=== PATIENT | female | born 1930 | race African-American/Black ===

== ENCOUNTER → 2016-12-11 | Outpatient (CLI) | payer BC | LOC: RAD 13:04 | PROVIDERS: ATTEND Internal Medicine | DX: H05.20 Unspecified exophthalmos (principal) | CPT/HCPCS: 70481; 82565 ==

== ENCOUNTER 2017-10-29 18:17 | Emergency (ER) | payer BC, MEDICARE ==
[2017-10-29] MEDS ORDERED: ASPIRIN 81 MG TABLET, CHEWABLE PO ONE (19:17)
[2017-10-29] MEDS ORDERED: ALPRAZOLAM 0.5 MG TABLET PO ONE (19:18)
--- NOTE | 2017-10-29 19:20 | ER Document Report ---
ED Blood Pressure Problem - General Chief Complaint: High Blood Pressure Stated Complaint: BLOOD PRESSURE PROBLEM Time Seen by Provider: 10/29/17 18:53 Notes: 86 years old elderly pleasant female, checked her blood pressure at home it was high around 187 got panicked and brought to the doctor's office that the pressure was 210 systole, therefore you she was referred to the ED. They also had an electrocardiogram done in the doctor's office. Which showed a heart rate of 98. She denies any headache dizziness blurring of vision focal weakness numbness tingling sensation. Denies any chest pain shortness of breath wheezing. Denies any palpitation or diaphoresis. She has chronic cough otherwise no fever chills. TRAVEL OUTSIDE OF THE [place] IN LAST 30 DAYS: No - Related Data Allergies/Adverse Reactions: Penicillins Allergy (Verified 10/29/17 18:19) Home Medications: Current Home Medications Doxycycline Hyclate 100 mg PO BID 10/29/17 [History] Exenatide [Byetta] 1 dose SUBCUT ASDIR PRN 10/29/17 [History] Glipizide [Glipizide Xl] 1 tab PO DAILY 10/29/17 [History] Hydrochlorothiazide 12.5 mg PO DAILY 10/29/17 [History] Levothyroxine Sodium [Synthroid 0.025 mg Tablet] 1 tab PO DAILY 10/29/17 [ History] Losartan/Hydrochlorothiazide [Losartan-Hctz 100-25 mg Tab] 1 each PO DAILY 10/29 [History] Metformin HCl [Metformin HCl ER] 500 mg PO BID 10/29/17 [History] Montelukast Sodium 10 mg PO DAILY 10/29/17 [History] Pravastatin Sodium [Pravachol] 40 mg PO QHS 10/29/17 [History] Past Medical History - Social History Smoking Status: Never Smoker Chew tobacco use (# tins/day): No Frequency of alcohol use: Rare Drug Abuse: None Family History: Reviewed & Not Pertinent Patient has suicidal ideation: No Patient has homicidal ideation: No - Past Medical History Cardiac Medical History: Reports: Hx Hypercholesterolemia, Hx Hypertension Endocrine Medical History: Reports: Hx Diabetes Mellitus Type 2 Renal/ Medical History: Denies: Hx Peritoneal Dialysis Review of Systems - Review of Systems Notes: REVIEW OF SYSTEMS: CONSTITUTIONAL : Denies fever, chills, or sweats. Denies recent illness. EENT: Denies eye, ear, throat, or mouth pain or symptoms. Denies nasal or sinus congestion or discharge. Denies throat, tongue, or mouth swelling or difficulty swallowing. CARDIOVASCULAR: Denies chest pain. Denies palpitations or racing or irregular heart beat. Denies ankle edema. RESPIRATORY: Denies cough, cold, or chest congestion. Denies shortness of breath, difficulty breathing, or wheezing. GASTROINTESTINAL: Denies abdominal pain or distention. Denies nausea, vomiting , or diarrhea. Denies blood in vomitus, stools, or per rectum. Denies black, tarry stools. Denies constipation. GENITOURINARY: Denies difficulty urinating, painful urination, burning, frequency, blood in urine, or discharge. FEMALE GENITOURINARY: Denies vaginal bleeding, heavy or abnormal periods, irregular periods. Denies vaginal discharge or odor. MUSCULOSKELETAL: Denies back or neck pain or stiffness. Denies joint pain or swelling. SKIN: Denies rash, lesions or sores. HEMATOLOGIC : Denies easy bruising or bleeding. LYMPHATIC: Denies swollen, enlarged glands. NEUROLOGICAL: Denies confusion or altered mental status. Denies passing out or loss of consciousness. Denies dizziness or lightheadedness. Denies headache. Denies weakness or paralysis or loss of use of either side. Denies problems with gait or speech. Denies sensory loss, numbness, or tingling. Denies seizures. PSYCHIATRIC: Denies anxiety or stress. Denies depression, suicidal ideation, or homicidal ideation. ALL OTHER SYSTEMS REVIEWED AND NEGATIVE. PHYSICAL EXAMINATION: GENERAL: Well-appearing, well-nourished and in no acute distress. HEAD: Atraumatic, normocephalic. EYES: Pupils equal round and reactive to light, extraocular movements intact, conjunctiva are normal. ENT: Nares patent, oropharynx clear without exudates. Moist mucous membranes. NECK: Normal range of motion, supple without lymphadenopathy LUNGS: Breath sounds clear to auscultation bilaterally and equal. No wheezes rales or rhonchi. HEART: Regular rate and rhythm without murmurs ABDOMEN: Soft, nontender, nondistended abdomen. No guarding, no rebound. No masses appreciated. Female : deferred Musculoskeletal: Normal range of motion, no pitting or edema. No cyanosis. NEUROLOGICAL: Cranial nerves grossly intact. Normal speech, normal gait. Normal sensory, motor exams PSYCH: Normal mood, normal affect. SKIN: Warm, Dry, normal turgor, no rashes or lesions noted. Dictation was performed using [employer] voice recognition software Physical Exam - Vital signs Vitals: Temp Pulse Resp Pulse Ox 97.9 F 111 H 20 97 10/29/17 18:26 10/29/17 18:26 10/29/17 18:26 10/29/17 18:26 Course - Re-evaluation Re-evalutation: 10/29/17 23:55 BP has come down to 150/83,Feeling comfortable. Lab and X 10/30/17 00:00 Patient feels much comfortable, she has a questionable small infiltrate in the right upper lobe therefore started with antibiotic. - Vital Signs Vital signs: Temp Pulse Resp BP Pulse Ox 97.9 F 111 H 26 H 150/76 H 99 10/29/17 18:26 10/29/17 18:26 10/29/17 23:01 10/29/17 23:01 10/29/17 23:01 - Laboratory Result Diagrams: 10/29/17 19:35 10/29/17 20:34 Laboratory results interpreted by me: 10/29/17 10/29/17 10/29/17 19:35 20:34 20:34 WBC 14.5 H Hgb 11.9 L Hct 34.8 L RDW 16.8 H Seg Neutrophils % 87.8 H Lymphocytes % 8.8 L Monocytes % 2.9 L Absolute Neutrophils 12.7 H Chloride 97 L BUN 31 H Glucose 157 H Alkaline Phosphatase 136 H Creatine Kinase 543 H CK-MB (CK-2) 5.29 H - Diagnostic Test Radiology results interpreted by me: 10/30/17 00:01 Radiology report reviewed - EKG Interpretation by Me EKG shows normal: Sinus rhythm - Sinus rhythm at the rate of 98 bpm, normal axis no acute ST elevation ST depression T-wave inversion noted. Left ventricular hypertrophy by voltage criteria. Discharge - Discharge Clinical Impression: Bronchitis, Anxiety Hypertension Qualifiers: Hypertension type: essential hypertension Qualified Code(s): I10 - Essential ( primary) hypertension Disposition: HOME, SELF-CARE Instructions: High Blood Pressure ([facility]) Prescriptions: Alprazolam [Xanax 0.25 mg Tablet] 0.25 mg PO Q6HP PRN #10 tablet PRN Reason: Azithromycin [Zithromax 250 mg Tablet] 250 mg PO ASDIR PRN #6 tablet PRN Reason:
--- NOTE | 2017-10-29 19:39 | RADIOLOGY REPORT (SQ) ---
EXAM DESCRIPTION: CHEST SINGLE VIEW COMPLETED DATE/TIME: 10/29/2017 7:31 pm REASON FOR STUDY: Cough COMPARISON: None. EXAM PARAMETERS: NUMBER OF VIEWS: One view. TECHNIQUE: Single frontal radiographic view of the chest acquired. RADIATION DOSE: NA LIMITATIONS: None. FINDINGS: LUNGS AND PLEURA: Density in the right apex. Mass versus chronic scarring. Left basilar atelectasis. MEDIASTINUM AND HILAR STRUCTURES: No masses. Contour normal. HEART AND VASCULAR STRUCTURES: Heart normal in size. Normal vasculature. BONES: No acute findings. HARDWARE: None in the chest. OTHER: No other significant finding. IMPRESSION: Mass versus scar in the right apex. Basilar atelectasis on the left. TECHNICAL DOCUMENTATION: JOB ID: [id number] [employer]- All Rights Reserved
[2017-10-29 19:51] LABS: ABSOLUTE BASOPHILS # (AUTO) 0.1 10^3/uL (0.0-0.2); ABSOLUTE LYMPHOCYTES (AUTO) 1.3 10^3/uL (0.5-4.7); ABSOLUTE MONOCYTES (AUTO) 0.4 10^3/uL (0.1-1.4); ABSOLUTE NEUT (AUTO) 12.7 10^3/uL (1.7-8.2); BASOPHILS % (AUTO) 0.4 % (0-2); EOSINOPHILS % (AUTO) 0.1 % (0-6); HEMATOCRIT 34.8 % (36.0-47.0); HEMOGLOBIN 11.9 g/dL (12.0-15.5); HGB HCT DIFFERENCE 0.9; LYMPHOCYTES % (AUTO) 8.8 % (13-45); MEAN CORPUSCULAR HGB CONC 34.2 g/dL (32.0-36.0); MEAN CORPUSCULAR VOLUME 82 fl (80-97); MONOCYTES % (AUTO) 2.9 % (3-13); RED BLOOD COUNT 4.25 10^6/uL (3.72-5.28); RED CELL DISTRIBUTION WIDTH 16.8 % (11.5-14.0); SEGMENTED NEUTROPHILS % (AUTO) 87.8 % (42-78); WHITE BLOOD COUNT 14.5 10^3/uL (4.0-10.5)
[2017-10-29 21:12] LABS: ALANINE AMINOTRANSFERASE 29 U/L (9-52); ALBUMIN 4.5 g/dL (3.5-5.0); ALKALINE PHOSPHATASE 136 U/L (38-126); ANION GAP 17 (5-19); ASPARTATE AMINO TRANSFERASE 35 U/L (14-36); BILIRUBIN,DIRECT 0.4 mg/dL (0.0-0.4); BILIRUBIN,TOTAL 0.9 mg/dL (0.2-1.3); BLOOD UREA NITROGEN 31 mg/dL (7-20); CARBON DIOXIDE 24 mmol/L (22-30); CHLORIDE 97 mmol/L (98-107); CREATINE KINASE 543 U/L (30-135); CREATININE RESULT 0.73 mg/dL (0.52-1.25); GLUCOSE 157 mg/dL (75-110); POTASSIUM 3.8 mmol/L (3.6-5.0); TOTAL PROTEIN 7.3 g/dL (6.3-8.2)
[2017-10-29 21:22] LABS: CREATINE KINASE MB 5.29 ng/mL (<4.55)
[2017-10-29 21:27] LABS: TROPONIN I < 0.012 ng/mL
--- NOTE | 2017-10-29 21:52 | EKG REPORT ---
SEVERITY:- ABNORMAL ECG - SINUS RHYTHM LEFT AXIS DEVIATION LEFT VENTRICULAR HYPERTROPHY ANTERIOR Q WAVES, POSSIBLY DUE TO LVH VS ANT MN AGE INDETERMINATE : Confirmed by: Sachin Sandoval 29-Oct-2017 21:51:34
[2017-10-30] MEDS ORDERED: AZITHROMYCIN 250 MG TABLET PO ONE (00:04)
[2017-10-30 00:19] VITALS: BP 143/72
== END 2017-10-30 00:25 | disposition home or self-care (01) ==
LOC: ER 18:17
DX: I10 Essential (primary) hypertension (principal); J40 Bronchitis, not specified as acute or chronic; F41.9 Anxiety disorder, unspecified; E11.9 Type 2 diabetes mellitus without complications; I51.7 Cardiomegaly; Z88.0 Allergy status to penicillin
CPT/HCPCS: 36415; 71010; 80053; 82550; 82553; 84484; 85025; 93005; 93010; 99284

== ENCOUNTER → 2019-09-07 | Outpatient (CLI) | payer BC ==
--- NOTE | 2019-09-08 20:32 | XCELERA REPORT ---
[address] [address] Transthoracic Echocardiogram Report Name: GAYATRI BRASHER Age: 88 yrs Gender: Female : 1930 Patient Status: Outpatient Patient Location: [facility] Study Date: 09/07/2019 11:30 AM Height: 60 in Weight: 98 lb BSA: 1.4 m2 Procedure: A two-dimensional transthoracic echocardiogram with color flow and Doppler was performed. Study Quality: Good. Reason For Study: MURMUR History: MURMUR. Ordering Physician: NI JORDAN Performed By: Gerda Diaz Interpretation Summary The left ventricle is normal in size. There is normal left ventricular wall thickness. LV EF is > than 65% Left ventricular systolic function is normal. Doppler measurements suggest pseudonormalized left ventricular relaxation, which is associated with grade II/IV or mild to moderate diastolic dysfunction The left ventricular wall motion is normal. There is no thrombus. There is no ventricular septal defect visualized. The right ventricle is normal in size and function. The right atrium is normal. The left atrial size is normal. The interatrial septum is intact with no evidence for an atrial septal defect. There is no Doppler evidence for an interatrial shunt There is moderate mitral annular calcification. Moderately calcified mitral valve leaflet tips. There is no evidence of mitral valve prolapse. There is no vegetation seen on the mitral valve. There is no mitral valve stenosis. There is a trace amount of mitral regurgitation There is no aortic valvular vegetation. There is a peak gradient of 57.1 mm of Hg , and mean gradient of 32.5 mm of Hg. There is severe aortic stenosis No aortic regurgitation is present. There is no tricuspid stenosis. There is a mild amount of tricuspid regurgitation There is mild pulmonary hypertension by echo RVSP is 32 to 37 mm of Hg , with RA mean of 10 to 15. There is no pulmonic valvular stenosis. There is no pulmonic valvular regurgitation. The aortic root is normal size. The inferior vena cava appeared normal and decreased < 50% with respiration (RAP 10-15 mmHg) There is no pericardial effusion. MMode/2D Measurements & Calculations IVSd: 0.65 cm LVIDd: 3.6 cm FS: 39.2 % Ao root diam: 2.7 cm LVIDs: 2.2 cm EDV(Teich): 54.5 ml Ao root area: 5.8 cm2 LVPWd: 1.0 cm ESV(Teich): 16.0 ml EF(Teich): 70.6 % LVOT diam: 1.4 cm LVOT area: 1.6 cm2 Doppler Measurements & Calculations MV E max pal: MV dec slope: Ao V2 max: LV V1 max P.0 cm/sec 717.7 cm/sec2 376.5 cm/sec 3.5 mmHg MV A max pal: MV dec time: Ao max PG: LV V1 mean P.2 cm/sec 0.15 sec 57.1 mmHg 2.0 mmHg MV E/A: 0.75 Ao V2 mean: LV V1 max: 266.2 cm/sec 93.9 cm/sec Ao mean PG: LV V1 mean: 32.5 mmHg 65.4 cm/sec Ao V2 VTI: 66.1 cmLV V1 VTI: 14.9 cm MATTHWE(I,D): 0.37 cm2 MATTHEW(V,D): 0.40 cm2 SV(LVOT): 24.2 ml PA V2 max: TR max pal: Pulm Sys Pal: 103.1 cm/sec 232.7 cm/sec 59.7 cm/sec PA max P.3 mmHg TR max PG: Pulm Martinez Pal: 21.7 mmHg 62.9 cm/sec Pulm A Revs Pal: 24.4 cm/sec Pulm A Revs Dur: 0.12 sec Pulm S/D: 0.95 Left Ventricle The left ventricle is normal in size. There is normal left ventricular wall thickness. LV EF is > than 65%. Left ventricular systolic function is normal. Doppler measurements suggest pseudonormalized left ventricular relaxation, which is associated with grade II/IV or mild to moderate diastolic dysfunction. The left ventricular wall motion is normal. There is no thrombus. There is no ventricular septal defect visualized. Right Ventricle The right ventricle is normal in size and function. Atria The right atrium is normal. The left atrial size is normal. The interatrial septum is intact with no evidence for an atrial septal defect. There is no Doppler evidence for an interatrial shunt. Mitral Valve There is moderate mitral annular calcification. Moderately calcified mitral valve leaflet tips. There is no evidence of mitral valve prolapse. There is no vegetation seen on the mitral valve. There is no mitral valve stenosis. There is a trace amount of mitral regurgitation. Aortic Valve There is no aortic valvular vegetation. There is a peak gradient of 57.1 mm of Hg , and mean gradient of 32.5 mm of Hg. There is severe aortic stenosis. No aortic regurgitation is present. Tricuspid Valve There is no tricuspid stenosis. There is a mild amount of tricuspid regurgitation. There is mild pulmonary hypertension by echo. RVSP is 32 to 37 mm of Hg , with RA mean of 10 to 15. Pulmonic Valve There is no pulmonic valvular stenosis. There is no pulmonic valvular regurgitation. Great Vessels The aortic root is normal size. The inferior vena cava appeared normal and decreased < 50% with respiration (RAP 10-15 mmHg). Effusions There is no pericardial effusion. : NI JORDAN Lakshmi
== END ==
LOC: SP 11:28
PROVIDERS: ATTEND Nurse Practitioner Family
DX: R01.1 Cardiac murmur, unspecified (principal)
CPT/HCPCS: 93306